=== PATIENT | female | born 1965 | race Caucasian/White ===

== ENCOUNTER → 2019-11-29 | Outpatient (CLI) | payer OTHER ==
--- NOTE | 2019-12-01 16:07 | PATH ---
[facility] [place] [address] PATHOLOGY RPT PROCEDURE Name: MICHA SHEETS Room #: REG [facility].#: [id number] Admission: 11/29/19 Date of : 63 Discharge: Report #: [id number] Path Case #: [id number] Note [facility] Accession Number: [id number] TESTS RESULT FLAG UNITS REF RANGE LAB Clinician Provided Cytology Information No. of containers..01 Other (Miscellaneous) Source: LEFT THYROID MASS DIAGNOSIS: LEFT THYROID MASS, FINE NEEDLE ASPIRATION INCONCLUSIVE. BETHESDA CATEGORY III. ATYPIA OF UNDETERMINED SIGNIFICANCE. THIS INTERPRETATION INCLUDES EVALUATION OF A CELL BLOCK. Comment: Examination shows scant cellularity with few follicular cells showing rare overlapping and grooves along with microfollicle formation. Rare Hurthle cells are identified with mild atypia. Overall features maybe suggestive of a microfollicular adenoma or other follicular neoplasms including Hurthle cell adenoma or a papillary thyroid carcinoma. 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 Portion of the specimen sent in RNA retain vial is sent for molecular testing. [place]: Dr. Luciana Stein. Pathologist ICD10: 02 E04.2 Signed out by: 02 Andie Dave MD, Pathologist NPI- [id number] Performed by: 01 Omayra Belcher, Research Mechanic ([facility]) Gross description: 01 30ML, CLEAR COLORLESS, 2 FX 4 AD /LCS 11/29/2019 1701 Local FLAG LEGEND: L-Low Normal,H-High Normal,LL-Alert Low,HH-Alert High <-Panic Low,>-Panic High,A-Abnormal,AA-Critical Abnormal Performed at: 01 [facility] [address] [place] [address] Phong Godinez MD, [address] [address] [address] Andie Dave MD, [facility] [address] [place] [address] PATHOLOGY RPT PROCEDURE Name: MICHA SHEETS Room #: REG [facility] [place]#: [id number] Admission: 11/29/19 Date of : 63 Discharge: Report #: [id number] Path Case #: [id number] Specimen Comment: A courtesy copy of this report has been sent to [phone] Specimen Comment: [phone] Specimen Comment: Report sent to DR SIMPSON / DR PENN Performed at: 01 [facility] [id number], [place], [place] [id number] MD Phong Godinez MD Phone: [phone]
== END | disposition home or self-care (01) ==
LOC: ULTRA
PROVIDERS: ATTEND Internal Medicine
DX: E04.2 Nontoxic multinodular goiter (principal)

== ENCOUNTER 2020-02-22 15:22 | Inpatient (IN) | payer OTHER ==
[~2020-02-22] VITALS: Ht 154.9 cm; Wt 117.9 kg
[~2020-02-22 15:22] MED LIST: CARAFATE1 GM PO; CORTEF 20 MG TA20 MG PO; CORTEF10 MG PO; CYMBALTA60 MG PO; FLEXERIL PO; FOLIC ACID1 MG PO; HYDROCHLOROTHIA25 M2 PO; MAGIC MOUTHWASH SW&SWALLOW; METHOTREXATE 22.5 M1 PO; NABUMETONE 500500 M2 PO; OMEPRAZOLE40 MG PO; REMICADE 1100 MG/VIA IV; SULFASALAZINE500 M1 PO; TRAMADOL 50 MG50 MG PO
[2020-02-22 16:17] VITALS: BP 145/81
[2020-02-22 17:46] LABS: ABSOLUTE NEUTROPHILS 5.4 thou/uL (1.4-8.2); BASOPHILS 0.9 % (0.0-2.0); EOSINOPHILS 3.4 % (0.0-3.0); HEMATOCRIT 32.8 % (37.0-47.0); HEMOGLOBIN 10.4 gm/dL (12.0-15.0); LYMPHOCYTES 21.3 % (24.0-44.0); MCH 25.4 pg (26.0-34.0); MCHC 31.8 g/dL (28.0-37.0); MONOCYTES 8.1 % (1.0-8.0); PLATELET COUNT 398 thou/uL (150-400); POLYS 66.3 % (36.0-66.0); RDW 19.7 % (10.5-14.5); WBC 8.1 thou/uL (4.0-11.0)
[2020-02-22 17:59] LABS: PROTIME 10.2 Seconds (9.3-11.4)
[2020-02-22 18:40] LABS: CALCIUM 8.9 mg/dL (8.5-10.1); CREATININE 0.7 mg/dL (0.6-1.0); POTASSIUM 3.1 mmol/L (3.5-5.1)
[2020-02-22 18:44] LABS: ALBUMIN 3.6 g/dL (3.4-5.0); TOTAL BILIRUBIN 0.2 mg/dL (0.2-1.0); TOTAL PROTEIN 7.5 g/dL (6.4-8.2)
--- NOTE | 2020-02-22 19:07 | NUR ---
55 YO FEMALE ADMITTED TO [facility] BY W/Enriqueta Melara&YADY4. PT WILL HAVE THYROID SURGERY IN AM. IV PLACED IN L FA. FLUIDS STARTED. PT WILL BE NPO AFTER MN.
[2020-02-22 20:25] VITALS: BP 142/72
[2020-02-23] VITALS (10 sets, daily range): BP systolic 123–145; BP diastolic 54–77
--- NOTE | 2020-02-23 00:44 | NUR ---
ASSESSED AT START OF SHIFT 1900. PT A&OX4. DENIES PAIN, N/V. PT UP AD RADHA TO THE BATHROOM. IV INTACT AND FLUIDS INFUSING. PT NPO AFTER MID NIGHT AND ADMISSION ORDER RECEIVED FROM DR STAFFORD. CALL LIGHT AT REACH AND WILL CONT TO MONITOR TILL EOS.
--- NOTE | 2020-02-23 07:28 | EKG ---
[facility] [place] [address] ELECTROCARDIOGRAM REPORT Name: MICHA SHEETS Room #: 448-P ADM IN M.R.#: [id number] Admission: 02/22/20 Attend Phys: Maximino Archuleta MD Discharge: Date of : 63 Report #: [id number] THIS REPORT FOR: cc: Kemar Navarrete MD, Bernard O. MD Santiago, Patrick MD [facility] ~ THIS REPORT FOR: //name// [facility] Test Date: 2020-02-23 Test Time: 07:02:10 Pat Name: MICHA SHEETS Department: Room: 448 P Gender: F Hedge Trimmer: ALEXIS : 1965 Requested By: Maximino Archuleta Order Number: [id number] MD: Rc Mclaughlin Measurements Intervals [place] Rate: 75 P: 27 LA: 129 QRS: 39 QRSD: 95 T: 25 QT: 410 QTc: 458 Interpretive Statements Sinus rhythm No previous ECG available for comparison Electronically Signed On 02-23-2020 7:28:44 CDT by Rc Mclaughlin [email or web address] <ELECTRONICALLY SIGNED> By: Rc Mclaughlin MD, FACC 02/23/2028 1 1 Rc Mclaughlin MD, [facility] /EPI
[2020-02-23] MEDS ORDERED: ACETAMINOPHEN325 M1 PO (10:34)
[2020-02-23] MEDS ORDERED: OXYCODONE HCL 55 MG PO (10:34)
[2020-02-23] MEDS ORDERED: COLACE 100 MG100 MG PO (10:35)
[2020-02-23] MEDS ORDERED: MIRALAX17 GM PO (10:35)
--- NOTE | 2020-02-23 12:27 | NUR ---
pt out of room for surgery/procedure. will cont following as needed for dc needs.
--- NOTE | 2020-02-23 15:57 | NUR ---
PATIENT WAS TRANSPORTED TO UNIT FROM OR AT 1535. POST OP VS TAKEN, TELEMETRY IN PLACE. VOICES MILD PAIN ON NECK. FAMILY AT BEDSIDE; VOICES NO OTHER NEEDS. WILL CONTINUE TO MONITOR
--- NOTE | 2020-02-24 03:13 | NUR ---
PATIENT ALERT AND ORIENTED X4. UP ADLIB IN ROOM. BS MONITORED PER ORDER. IVF INFUSING W/O COMPLICATION. MEDICATED FOR PAIN WITH GOOD RESULTS. DRESSING TO THROAT DRY AND INTACT. WILL MONITOR.
[2020-02-24 09:20] VITALS: BP 123/58
--- NOTE | 2020-02-24 12:14 | HC ---
[facility] [place] [address] CONSULTATION Name: MICHA SHEETS Room #: 457-P ADM IN M.R.#: [id number] Admission: 02/22/20 Attend Phys: Maximino Archuleta MD Discharge: Date of : 63 Report #: [id number] THIS REPORT FOR: cc: Kemar Navarrete MD, Bernard O. MD Al-Mubaslat, Ahmad MD ~ CC: Kemar Vance DATE OF SERVICE: 02/23/2020 ENDOCRINE CONSULTATION NOTE CONSULTING PHYSICIAN: Dr. Maximino Archuleta. REASON FOR CONSULTATION: Thyroid nodule, adrenal insufficiency, hypothyroidism, prediabetes. HISTORY OF PRESENT ILLNESS: This is a 55-year-old female patient who has an extensive medical background is noted for adrenal insufficiency, prediabetes mellitus, multinodular goiter, hypothyroidism, and fibromyalgia in addition to other medical issues. I have been following the patient in my clinic for some time now and her adrenal insufficiency. History dates back to about 10 years with her most recent regimen consisting of hydrocortisone 20 mg in a.m. and 10 mg in p.m. She has done well on this regimen without the need for stress dosing in the past few years. The patient denies issues with dizziness, lightheadedness or frequent difficulties with nausea, vomiting, abdominal discomfort. She is also known to have hypothyroidism since 2014, but has been off active thyroid hormone replacement therapy for several months. The patient has been known to have a multinodular goiter with her most recent thyroid ultrasound in 07/2019 confirming this outlook with a dominant 2.7 x 3.6 cm nodule in the inferior pole of the left lobe. This was biopsied a few months ago and the initial cytology assessment was consistent with an indeterminate nodule. This is a category 3 with further molecular testing with the ____ platform concluding that it does not have a high risk for malignancy with a benign predicted value of 91-97%. However, given the progressive growth of this nodule, it was determined that the patient would be best served by hemithyroidectomy and she was referred to Dr. Archuleta for this purpose. The patient was admitted yesterday and had undergone a left hemithyroidectomy earlier today and had an uneventful perioperative course so far. Also, she is known to have prediabetes mellitus and is maintained on a regimen [address] [address] CONSULTATION Name: MICHA SHEETS Room #: 457-P ADM IN M.R.#: [id number] Admission: 02/22/20 Attend Phys: Maximino Archuleta MD Discharge: Date of : 63 Report #: [id number] of metformin ER 750 mg daily. REVIEW OF SYSTEMS: CONSTITUTIONAL: Fatigue, tiredness, but not major weight changes, fever or chills. HEENT: Negative for sore throat, sinus pain or ear drainage. PULMONARY: Negative for shortness of breath, cough or hemoptysis. CARDIAC: Negative for chest pain, palpitations, syncope or presyncope. GASTROINTESTINAL: Negative for abdominal pain, nausea, vomiting or changes in bowel movement frequency. NEUROLOGY: Negative for loss of consciousness, severe frequent headaches or seizure activity. MUSCULOSKELETAL: Noted for fibromyalgia and she actively follows with Rheumatology for this issue. Otherwise, review of systems noncontributory other than those mentioned in HPI. PAST MEDICAL HISTORY: 1. Hypothyroidism. 2. Adrenal insufficiency. 3. Multinodular goiter. 4. Hypertension. 5. Prediabetes mellitus. 6. Fibromyalgia. 7. Anemia. 8. Anxiety. 9. Carpal tunnel syndrome. 10. Cervical radiculopathy. 11. Obstructive sleep apnea. 12. Osteoarthritis. 13. Rheumatoid arthritis. 14. Sinusitis. 15. Vitamin D deficiency. OUTPATIENT MEDICATIONS: Include acyclovir 400 mg t.i.d., vitamin D 1000 units daily, Flexeril 10 mg t.i.d. p.r.n., duloxetine 60 mg daily, folic acid 1 mg daily, hydrochlorothiazide 25 mg daily, hydrocortisone 20 mg q.a.m. and 10 mg q.p.m., methotrexate 10 mg tablets once a week, sulfasalazine 500 mg b.i.d., tramadol 50 mg q. 6 hours p.r.n. ALLERGIES: No known drug allergies. FAMILY HISTORY: Noted for diabetes mellitus, kidney disease, hypertension, type 2 diabetes mellitus. SOCIAL HISTORY: The patient denies use of tobacco, alcohol or illicit drugs. [address] [address] CONSULTATION Name: MICHA SHEETS Room #: 457-P [facility] IN M.R.#: [id number] Admission: 02/22/20 Attend Phys: Maximino Archuleta MD Discharge: Date of : 63 Report #: [id number] PHYSICAL EXAMINATION: GENERAL: The patient was lying in bed in the recovery area of the OR. She seems comfortable, not in apparent distress. VITAL SIGNS: Blood pressure was 145/77 mmHg, heart rate is 75 beats per minute, respiration 18 per minute, temperature 36.5 degrees Celsius. CONSTITUTIONAL: The patient appeared relatively comfortable, not in apparent distress. HEENT: Anicteric sclerae. Intact extraocular motions. NECK: Supple, with an ice pack over the surgical wound at the base of the neck. CHEST: Noted for moderate entry bilaterally with scattered rales. No wheeze or crackles. HEART: Regular rate and rhythm without murmurs or gallops. ABDOMEN: Soft, lax. No guarding. Active bowel sounds. EXTREMITIES: Lower extremity exam is negative for ankle edema. The patient has good pedal pulses bilaterally. NEUROLOGIC: Awake, alert and oriented to time, place and person. The remainder of her examination is nonfocal. PSYCHIATRIC: Pleasant, interactive. Normal mood and affect. LABORATORY RESULTS: Blood glucose values have ranged from 122-179 mg/dL. Otherwise, sodium 141, potassium 3.1, chloride 100, CO2 of 30, anion gap 11, creatinine 0.7, AST 22, total bilirubin 0.2, calcium 8.9, alkaline phosphatase 97, ALT 28, total protein 7.5, albumin 3.6, EGFR 87. INR 1.0. White blood count 8.1, hemoglobin 10.4, hematocrit 32.8, platelets 398. ASSESSMENT AND PLAN: 1. Multinodular goiter. As noted above, the patient has a multinodular goiter with a dominant 3.6 cm inferior pole left lower nodule with microcalcifications that was deemed likely benign during a recent FNA. However, I proceeded with recommendation to undergo a left hemithyroidectomy based on the significant growth and progression in size that she had exhibited over the past few years. She had already undergone left hemithyroidectomy earlier today uneventfully. The patient's final thyroid pathology would be crucial in making further recommendations. Of course, we are hopeful for a benign outcome in which case the main focus would be on patient's thyroid function, balance going forward. However, if she does prove to host of thyroid malignancy, then consideration for a completion thyroidectomy procedure might have to be made. 2. Hypothyroidism. The patient was documented as having hypothyroidism in the past, but has managed to get ____ therapy in the past. Given the performance of a left hemithyroidectomy, the patient will need to be periodically assessed for thyroid dysfunction and as to whether or not active thyroid hormone therapy replacement is needed. The need at this point, I would like to do this that would be four to six weeks from now. 3. Prediabetes mellitus. The patient was confirmed as having a hemoglobin A1c of 6.1% recently. This had led to the initiation of low dose metformin therapy, [address] [address] CONSULTATION Name: MICHA SHEETS Room #: 457-P [facility] IN .R.#: [id number] Admission: 02/22/20 Attend Phys: Maximino Archuleta MD Discharge: Date of : 63 Report #: [id number] which she continues to be on. I will resume during this hospital stay in addition to support with Humalog supplemental scale low intensity to be given only if her blood glucose exceeds 200 mg/dL. 4. Adrenal insufficiency. The patient has longstanding adrenal insufficiency that has done well on a conventional regimen of hydrocortisone 20 mg q.a.m. and 10 mg q.p.m. by mouth. She has received stress hydrocortisone doses of 100 mg last night, 100 mg preoperatively today. I would like to carry on with the same for the rest of the day and then promptly converted her back to her usual oral hydrocortisone regimen tomorrow morning provided her clinical status allows for this. I have reviewed the patient's clinical care notes past and present inpatient and outpatient as well as laboratory data, imaging studies and other pertinent clinical information. I certainly appreciate this consultation by Dr. Archuleta. <ELECTRONICALLY SIGNED> By: Luigi Roque MD 02/24/20 1214 1413 2256 Luigi Roque MD /nt
[2020-02-24 13:16] VITALS: BP 123/58
--- NOTE | 2020-02-24 15:08 | NUR ---
PT A&OX4, VSS, AMBULATES UP AND AD RADHA, CONTINENT TO BOWEL AND BLADDER, PAIN CONTROLLED. PT WILL D/C HOME HH. TRANSPORTING PT HOME. IV IS, AND TELEMONITOR REMOVED.
--- NOTE | 2020-02-26 18:06 | PATH ---
[facility] [place] [address] PATHOLOGY RPT PROCEDURE Name: REBECCA GERARDO Rob Room #: 457-P DIS IN M.R.#: [id number] Admission: 02/22/20 Date of : 63 Discharge: 02/24/20 Report #: [id number] Path Case #: [id number] [facility] Accession Number: [id number] . 01 Material submitted: . thyroid gland - LEFT HEMITHYROID. Modifiers: left . 01 Clinical history: . LEFT THYROID NODULE/COVID TEST . 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 - Negative for papillary thyroid carcinoma. - Negative for malignancy. (IUV:mamta; 02/26/2020) MBR 02/26/2020 1544 Local . 02 Comment: Examination shows mixed macro and microfollicular architecture within a background of multinodular hyperplasia. Abundant calcifications are identified within the fibrotic parenchyma as well. In addition to hemosiderin-laden macrophages, a focal 4 mm area shows Hurthle cell metaplasia. FNA related changes are identified adjacent to this focus consistent with the prior FNA biopsy. (IUV:windows admin; 02/26/2020) . 02 Electronically signed: . Andie Dave MD, Pathologist NPI- [id number] . 01 Gross description: . The specimen is received in formalin, labeled "Rebecca Gerardo, left hemithyroid, stitch is superior". Received is a 34 g thyroid lobe measuring 6.3 x 4.3 x 3.5 cm in greatest dimensions with a suture designating the superior aspect. The capsule is disrupted and roughened in appearance. The surgical margin is inked. Sectioning reveals multiple pink-vanessa to colloid nodules, some of which display moderate calcification, ranging in size from 0.5 to 4.8 cm in maximum dimensions. There is a slight amount of normal red-brown thyroid parenchyma identified, which encompasses approximately 30% of the specimen. Publishing Editor sections are submitted from superior to inferior aspects in cassettes A1 through A7, following light decalcification. (CAA; 02/24/2020) QAC/QAC 02/24/2020 1924 Local . [address] [address] PATHOLOGY RPT PROCEDURE Name: REBECCA GERARDO Room #: 457-P DIS IN M.R.#: [id number] Admission: 02/22/20 Date of : 63 Discharge: 02/24/20 Report #: [id number] Path Case #: [id number] Pathologist provided ICD-10: E04.9, E04.1 . 02 CPT . 200975, 105277 Specimen Comment: A courtesy copy of this report has been sent to [phone] Specimen Comment: [phone], Specimen Comment: Report sent to ,DR BARSHER / DR PENN Performed at: [address], [place] [id number] MD Phong Godinez MD Phone: [phone] Performed at: [address] [id number] MD Andie Dave MD Phone: [phone]
== END 2020-02-24 15:38 | disposition home health service (06) | DRG 626 ==
LOC: 4S 15:22 → PRE 02-23 08:57 → 4S 02-23 10:25 → PRE 02-23 11:44 → 4W 02-23 14:45
PROVIDERS: ADMIT Surgery; ATTEND Surgery
PROC: 0GTG0ZZ Resection of Left Thyroid Gland Lobe, Open Approach (ICD-10-PCS; principal; 2020-02-23)
DX: E04.2 Nontoxic multinodular goiter (principal); E27.1 Primary adrenocortical insufficiency; Z68.42 Body mass index [BMI] 45.0-49.9, adult; M19.90 Unspecified osteoarthritis, unspecified site; M85.80 Other specified disorders of bone density and structure, unspecified site; E55.9 Vitamin D deficiency, unspecified; M06.9 Rheumatoid arthritis, unspecified; D64.9 Anemia, unspecified; F41.9 Anxiety disorder, unspecified; E66.9 Obesity, unspecified; E11.9 Type 2 diabetes mellitus without complications; I10 Essential (primary) hypertension; E78.5 Hyperlipidemia, unspecified; G47.33 Obstructive sleep apnea (adult) (pediatric); E03.9 Hypothyroidism, unspecified; M79.7 Fibromyalgia; Z20.828 Contact with and (suspected) exposure to other viral communicable diseases; Z79.899 Other long term (current) drug therapy
CPT/HCPCS: 10045; 10102; 50010; 50101; 62110; 62900; 70005

== ENCOUNTER 2020-02-26 14:35 | Emergency (ER) | payer OTHER ==
[~2020-02-26] VITALS: Ht 154.9 cm; Wt 113.4 kg
[~2020-02-26 14:35] MED LIST changes: +ACETAMINOPHEN325 M1 PO; +COLACE 100 MG100 MG PO; +MIRALAX17 GM PO; +OXYCODONE HCL 55 MG PO
[2020-02-26 15:24] LABS: ABSOLUTE NEUTROPHILS 7.6 thou/uL (1.4-8.2); BASOPHILS 0.9 % (0.0-2.0); EOSINOPHILS 3.3 % (0.0-3.0); HEMATOCRIT 29.2 % (37.0-47.0); HEMOGLOBIN 9.3 gm/dL (12.0-15.0); LYMPHOCYTES 24.2 % (24.0-44.0); MCH 25.6 pg (26.0-34.0); MCHC 31.7 g/dL (28.0-37.0); MCV 80.6 fL (80.0-100.0); MONOCYTES 9.3 % (1.0-8.0); PLATELET COUNT 374 thou/uL (150-400); POLYS 62.3 % (36.0-66.0); RBC 3.62 mil/uL (4.20-5.00); RDW 20.6 % (10.5-14.5); WBC 12.2 thou/uL (4.0-11.0)
[2020-02-26 15:36] LABS: URINE BILIRUBIN NEGATIVE (Negative); URINE BLOOD NEGATIVE (Negative); URINE CLARITY CLEAR; URINE COLOR YELLOW; URINE GLUCOSE-RANDOM* NEGATIVE (Negative); URINE KETONES NEGATIVE (Negative); URINE LEUKOCYTES-REFLEX NEGATIVE (Negative); URINE NITRITE-REFLEX NEGATIVE (Negative); URINE PROTEIN (DIPSTICK) NEGATIVE (Negative); URINE SPECIFIC GRAVITY <= 1.005 (1.005-1.035); URINE UROBILINOGEN 0.2 E.U./dl (0.2-1.0)
[2020-02-26 15:43] LABS: CALCIUM 8.7 mg/dL (8.5-10.1); CREATININE 0.8 mg/dL (0.6-1.0); MAGNESIUM 2.3 mg/dL (1.8-2.4); POTASSIUM 3.5 mmol/L (3.5-5.1)
--- NOTE | 2020-02-26 16:05 | EKG ---
[facility] [address] ELECTROCARDIOGRAM REPORT Name: MICHA SHEETS Room #: REG [facility]#: [id number] Admission: 02/26/20 Attend Phys: Discharge: Date of : 63 Report #: [id number] THIS REPORT FOR: cc: Kemar Navarrete MD, Bernard O. MD Santiago, Patrick MD [facility] ~ THIS REPORT FOR: //name// [facility] ED Test Date: 2020-02-26 Test Time: 15:55:40 Pat Name: MICHA SHEETS Department: Room: Gender: F Global Logistics Manager: MIHAELA MILLER : 1965 Requested By: Anoop Fuentes Order Number: [id number] MD: Rc Mclaughlin Measurements Intervals [place] Rate: 90 P: 32 MS: 130 QRS: 52 QRSD: 90 T: 32 QT: 360 QTc: 441 Interpretive Statements Sinus rhythm Low voltage, precordial leads Compared to ECG 02/23/2020 07:02:10 No significant changes Electronically Signed On 02-26-2020 16:05:46 CDT by Rc Mclaughlin [email or web address] <ELECTRONICALLY SIGNED> By: Rc Mclaughlin MD, FACC 02/26/20 1605 1555 1555 Rc Mclaughlin MD, [facility] /EPI
[2020-02-26 16:14] VITALS: BP 152/83
== END 2020-02-26 16:14 | disposition home or self-care (01) ==
LOC: ER 14:35
PROVIDERS: Emergency Medicine
DX: T40.2X5A Adverse effect of other opioids, initial encounter (principal); R42 Dizziness and giddiness; R11.0 Nausea; M79.7 Fibromyalgia; M19.90 Unspecified osteoarthritis, unspecified site; Z98.890 Other specified postprocedural states; Z79.899 Other long term (current) drug therapy; Y92.89 Other specified places as the place of occurrence of the external cause